=== PATIENT | male | born 1995 | race Two or more races ===

== ENCOUNTER 2022-05-12 10:13 | Emergency (ER) | payer BC, OTHER ==
[~2022-05-12] VITALS: Ht 177.8 cm; Wt 136.1 kg
[2022-05-12 10:20] VITALS: BP 191/91
[2022-05-12] MEDS ORDERED: AMOX-277 PO (10:39)
== END 2022-05-12 10:54 | disposition home or self-care (01) ==
LOC: ER 10:13
DX: H66.93 Otitis media, unspecified, bilateral (principal)